=== PATIENT | female | born 1940 | race Caucasian/White ===

== ENCOUNTER 2022-06-05 17:33 | Observation (INO) | payer OTHER ==
[~2022-06-05] VITALS: Ht 149.9 cm; Wt 68.5 kg
[2022-06-05 17:35] VITALS: BP 106/70
[2022-06-05 18:37] LABS: ALBUMIN 2.4 g/dL (3.4-5.0); ANION GAP 14.2 (8-16); ASPARTATE AMINOTRANSFERASE 25 U/L (15-37); CARBON DIOXIDE 20.4 mmol/L (21-32); CHLORIDE 113 mmol/L (98-107); CREATININE 2.1 mg/dL (0.6-1.3); GLUCOSE 133 mg/dL (74-106); MAGNESIUM 1.4 mg/dL (1.8-2.4); POTASSIUM 4.6 mmol/L (3.5-5.1); SODIUM SERUM 143 mmol/L (136-145); TOTAL BILIRUBIN 0.3 mg/dL (0.0-1.0); UREA NITROGEN, BLOOD 30 mg/dL (7-18)
--- NOTE | 2022-06-05 19:03 | NUR ---
82YR OLD FEMALE BIB EMS C/O SYCNOPE. PT WAS FOUND IN BATHROOM DOES NOT REMEMBER AFTER SHE STOOD UP FROM THE SOFA. GLUC 142. A&OX4. PT ON BEDSIDE MONITOR. 20G IV CATH PLACED L HAND.
--- NOTE | 2022-06-05 19:38 | NUR ---
SWAB COLLECTED AND WALKD TO LAB
[2022-06-05] MEDS ORDERED: DEXTROSE 50% 50 ML SYR IVP ONE (20:15)
[2022-06-05] MEDS ORDERED: cefTRIAXone 1,000 MG in DEXT 5% MINI-BAG PLUS 50 ML IV ONE (20:15)
[2022-06-05] MEDS ORDERED: NACL 0.9% 1,000 ML IV SCH (20:15)
[2022-06-05 20:18] LABS: BASOPHILS % (AUTO) 0.5 % (0.0-2.0); EOSINOPHILS % (AUTO) 10.9 % (0.0-4.0); HEMATOCRIT 27.4 % (36-48); HEMOGLOBIN 8.9 g/dL (12.0-16.0); LYMPHOCYTES # (AUTO) 1.3 K/uL (2.5-16.5); LYMPHOCYTES % (AUTO) 13.6 % (20.5-51.1); MEAN CORPUSCULAR HEMOGLOBIN 31 pg (27-31); MEAN CORPUSCULAR HGB CONC 33 g/dL (33-37); MEAN CORPUSCULAR VOLUME 93.9 fL (80-94); MONOCYTES # (AUTO) 0.7 K/uL (0.8-1.0); MONOCYTES % (AUTO) 7.1 % (1.7-9.3); NEUTROPHILS # (AUTO) 6.3 K/uL (1.8-7.7); NEUTROPHILS % (AUTO) 67.9 % (42.2-75.2); PLATELET COUNT (AUTO) 309 K/uL (140-450); RED BLOOD CELL COUNT(AUTO) 2.92 MIL/uL (4.20-5.40); RED CELL DISTRIBUTION WIDTH 17.5 % (11.6-13.7); WHITE BLOOD COUNT (AUTO) 9.3 K/uL (4.8-10.8)
[2022-06-05] MEDS ORDERED: cefTRIAXone 1,000 MG VIAL ONE (20:51)
--- NOTE | 2022-06-05 21:00 | NUR ---
ASSISTED PATIENT TO EAT SNACKS AND DRINKS. SITTING UP IN BED, TOLERATED WELL.
--- NOTE | 2022-06-05 21:25 | NUR ---
Note vivien in ED - 06/05/22 at 2351 by DARYN Patient will be admitted to care of [facility]. Admited to MD BERKLEY. Will go to room 111B. Belongings list completed. Report to CORTES MOYA .
--- NOTE | 2022-06-05 21:50 | NUR ---
SPOKE TO PATIENTS NAKUL ENGLE, AND UPDATED ON PATIENT STATUS AND TRANSFER.
--- NOTE | 2022-06-05 21:57 | NUR ---
SPOKE TO MEEK FROM [facility], GAVE CLINICALS ON PATIENT. PER MEEK PATIENT IS AUTHORIZED FOR OBSERBATION.
--- NOTE | 2022-06-05 22:30 | NUR ---
SPOKE TO MEEK AND SHE STATED SHE DID NOT RECEIVE CLINICALS. BUT OKAY TO ADMIT FOR OBSERVATION AFTER CLINICALS ARE RECEIVED.
[2022-06-05] MEDS ORDERED: SODIUM PHOS / POTASSIUM PHOS 1 PKT PDR PO PRN (22:50)
[2022-06-05] MEDS ORDERED: ONDANSETRON 4 MG/2 ML VIAL IM/IVP PRN (22:50)
[2022-06-05] MEDS ORDERED: ACETAMINOPHEN 325 MG TAB PO PRN (22:50)
[2022-06-05] MEDS ORDERED: DOCUSATE SODIUM 100 MG GELCAP PO PRN (22:50)
[2022-06-05] MEDS ORDERED: POTASSIUM CHLORIDE 10 MEQ TABER PO PRN (22:50)
--- NOTE | 2022-06-05 22:58 | NUR ---
SPOKE TO NAKUL ENGLE, UPDATED ON PATIENTS STATUS.
--- NOTE | 2022-06-05 23:00 | NUR ---
MD AWARE THAT URINE IS NOT COLLECTED.
--- NOTE | 2022-06-05 23:00 | NUR ---
ASSISTED BED WITH RENE CARE. CLEANED AND REPOSITIONED PATIETN. RQ MORE BLANKETS.
[2022-06-05 23:26] LABS: MAGNESIUM 1.4 mg/dL (1.8-2.4); PHOSPHORUS 3.8 mg/dL (2.5-4.9); THYROID STIMULATING HORMONE 0.04 uIU/mL (0.34-3.74)
[2022-06-05] MEDS: DEXT 5% /NACL 0.9% 1,000 ML IV SCH (23:45)
[2022-06-06] MEDS ORDERED: ATEN25TA7 PO (01:45)
[2022-06-06] MEDS ORDERED: HUM SUBQ (01:45)
[2022-06-06] MEDS ORDERED: ATOR20TA PO (01:48)
[2022-06-06] MEDS ORDERED: DEXTROSE 50% 50 ML SYR IVP PRN ×2 (02:05→15:05)
--- NOTE | 2022-06-06 02:21 | NUR ---
REPOSITIONED PATIENT. BED LOW AND LOCKED. ALL NEEDS MET
--- NOTE | 2022-06-06 05:59 | NUR ---
PROVIDED RENE CARE AND CLEANED PATIENT. PATIENT REPOSITIONED AND COVERED IN BLANKETS. BED LOW AND LOCKED. MICHAEL SIDE RAILS UP FOR SAFETY. ALL NEEDS MET.
--- NOTE | 2022-06-06 06:47 | NUR ---
LAB AT BEDSIDE
[2022-06-06 06:55] LABS: BASOPHILS # (AUTO) 0.1 K/uL (0.00-0.22); BASOPHILS % (AUTO) 0.7 % (0.0-2.0); EOSINOPHILS # (AUTO) 0.5 K/uL (0-0.4); EOSINOPHILS % (AUTO) 6.7 % (0.0-4.0); HEMATOCRIT 26.4 % (36-48); HEMOGLOBIN 8.5 g/dL (12.0-16.0); LYMPHOCYTES # (AUTO) 1.2 K/uL (2.5-16.5); LYMPHOCYTES % (AUTO) 15.7 % (20.5-51.1); MEAN CORPUSCULAR HEMOGLOBIN 30 pg (27-31); MEAN CORPUSCULAR HGB CONC 32 g/dL (33-37); MEAN CORPUSCULAR VOLUME 93.7 fL (80-94); MONOCYTES # (AUTO) 0.5 K/uL (0.8-1.0); NEUTROPHILS # (AUTO) 5.5 K/uL (1.8-7.7); NEUTROPHILS % (AUTO) 69.9 % (42.2-75.2); PLATELET COUNT (AUTO) 291 K/uL (140-450); RED BLOOD CELL COUNT(AUTO) 2.81 MIL/uL (4.20-5.40); RED CELL DISTRIBUTION WIDTH 17.2 % (11.6-13.7); WHITE BLOOD COUNT (AUTO) 7.8 K/uL (4.8-10.8)
--- NOTE | 2022-06-06 07:04 | NUR ---
PATIENT HAS BEEN SCREENED AND CATEGORIZED MODERATE NUTRITION RISK. PATIENT WILL BE SEEN WITHIN 3-5 DAYS OF ADMISSION. 06/08/22-06/10/22 MAR ROBERTS MS, RDN Addendum: 06/08/22 at [address] [facility] CONSULT HAS BEEN RECEIVED FOR MALNUTRITION. PATIENT HAS BEEN RE-SCREENED HIGH RISK AND WILL BE SEEN TODAY. 06/08/[address]
[2022-06-06 07:13] LABS: CARBON DIOXIDE 18.9 mmol/L (21-32); CHLORIDE 114 mmol/L (98-107); CREATININE 1.9 mg/dL (0.6-1.3); GLUCOSE 189 mg/dL (74-106); POTASSIUM 4.9 mmol/L (3.5-5.1); SODIUM SERUM 145 mmol/L (136-145); UREA NITROGEN, BLOOD 30 mg/dL (7-18)
[2022-06-06] MEDS ORDERED: ASPI81CT95 PO (07:20)
[2022-06-06] MEDS ORDERED: LISI20TA29 PO (07:20)
[2022-06-06] MEDS ORDERED: [UNRECOGNIZED DRUG - CODE] SL (07:20)
--- NOTE | 2022-06-06 07:21 | NUR ---
REPORT GIVEN TO MERLE العراقي. TRANSFER OF CARE
--- NOTE | 2022-06-06 07:21 | NUR ---
REPORT RECEIVED FROM RUBÉN BLOOM. ASSUMED CARE AT THIS TIME
--- NOTE | 2022-06-06 07:30 | NUR ---
pt awake and at rest , laying supine position. respirations even and unlabored. no visible distress. pt on monitor
[2022-06-06] MEDS: BLOOD GLUCOSE MONITORING 1 DEV DEV FS SCH ×4 (07:38→21:40)
[2022-06-06] MEDS: INSULIN LISPRO SLIDING SCALE 100 UNITS/ML VIAL SUBQ PRN ×2 (07:47→12:12)
--- NOTE | 2022-06-06 08:25 | NUR ---
pt provided w/ breakfast. pt repositioned , sitting up and eating in bed
--- NOTE | 2022-06-06 09:41 | NUR ---
MD VILLANUEVA AT BEDSIDE
[2022-06-06] MEDS: MAGNESIUM OXIDE 400 MG TAB PO PRN (10:07)
[2022-06-06] MEDS: PANTOPRAZOLE 40 MG INJ VIAL IVP SCH (10:07)
--- NOTE | 2022-06-06 12:00 | NUR ---
PT PROVIDED WITH LUNCH "NOT RIGHT NOW". LEFT AT BEDSIDE
--- NOTE | 2022-06-06 12:13 | NUR ---
ULTRASOUND AT BEDSIDE
--- NOTE | 2022-06-06 14:45 | NUR ---
PT REPORTS NEW ONSET OF DRY EYES AND UNABLE TO KEEP EYES OPEN. MD VILLANUEVA MADE AWARE VIA TEXT/ HOSPITAL PHONE
[2022-06-06] MEDS ORDERED: POLYVINYL ALCOHOL 1.4% OP 15 ML SOL OP PRN (15:05)
[2022-06-06] MEDS ORDERED: CARBOXYMETHYLCELLULOSE SODIUM OP PRN (15:15)
--- NOTE | 2022-06-06 15:41 | NUR ---
PT REPORTS EYE RELIEF. PT REPOSITIONED, GOWN CHANGED AND PROVIDED WITH NEW BLANKETS
--- NOTE | 2022-06-06 16:38 | NUR ---
PT TAKEN TO CT VIA JAYDEN
--- NOTE | 2022-06-06 16:51 | NUR ---
PT BROUGHT BACK FROM CT VIA JAYDEN
[2022-06-06] MEDS ORDERED: MAGNESIUM OXIDE 400 MG TAB PO ONE (16:55)
[2022-06-06] MEDS ORDERED: ECOTRIN 81 MG TABEC PO ONE (17:05)
[2022-06-06] MEDS: DEXT 5% /NACL 0.9% 1,000 ML IV SCH (18:50)
[2022-06-06] MEDS: ATORVASTATIN 20 MG TAB PO SCH (19:00)
--- NOTE | 2022-06-06 19:30 | NUR ---
REPORT GIVEN TO RUBÉN BLOOM. ALL QUESTIONS ANSWERED. TRANSFER OF CARE AT THIS TIME
--- NOTE | 2022-06-06 20:00 | NUR ---
IV ON RIGHT HAND DISCONTINUED. LEFT HAND 22G IV ESTABLISHED. IVF STARTED ORDERED.
--- NOTE | 2022-06-06 20:44 | NUR ---
Chart checked and completed.
--- NOTE | 2022-06-06 20:44 | NUR ---
Patient will be admitted to care of DO DIVINE. Admited to TELEMTRY. Will go to room 120B. Belongings list completed. Report to CORTES LEOS.
[2022-06-06 21:00] VITALS: BP 146/56
--- NOTE | 2022-06-06 21:00 | NUR ---
PT RECEIVED FROM DRUM FILLERCORTES ZIEGLER. PT IS A/O X 4. FULL CODE. HAS ALLERGIES TO : AMIODARONE, ASCORBIC ACID, CODEINE AND HYDRALAZINE. PT HAS A LH PIV 22G RUNNING D5 NS @ 50ML/HR. PT IS ON BEDREST SHE HAS A DIAPER ON AND USES BED COMMODE SOMETIMES. PT IS ABLE TO MOVE SIDE TO SIDE. PT IS ON ROOM AIR BREATHING E/U. PT DOES HAVE A DRY COUGH, NON-PRODUCTIVE. BED IN LOWEST POSITION, HOB ELEVATED, CALL LIGHT IN REACH, PT ORIENTED TO ROOM, AND SIDE RAILS X2. WILL CONTINUE TO MONITOR.
[2022-06-06] MEDS ORDERED: cefTRIAXone 1,000 MG VIAL ONE (21:26)
[2022-06-06] MEDS: carvediloL 6.25 MG TAB PO SCH (22:07)
[2022-06-07] VITALS: BP 144/45
[2022-06-07 04:00] VITALS: BP 140/51
--- NOTE | 2022-06-07 04:45 | NUR ---
PT PULLED OUT HER IV, I INSISTED AND EDUCATED PATIENT TO LET ME INSERT A NEW IV AND SHE REFUSED. CHARGE NURSE MADE AWARE.
[2022-06-07] MEDS: BLOOD GLUCOSE MONITORING 1 DEV DEV FS SCH ×4 (06:30→20:24)
--- NOTE | 2022-06-07 07:30 | NUR ---
RECEIVED REPORT FROM NIGHT NURSE. AOX3, ABLE BEAR WEIGHT AND WALK A FEW FEET. PATIENT DENIES ANY PAIN, NAUSEA AND VOMITING. NO SOB ON ROOM AIR, WITH DRY COUGH. PT REFUSING IV PLACEMENT AT THIS TIME. ISOLATION FOR SUSPECTED COVID, PCR PENDING. VERBALIZED UNDERSTANDING WITH THE POC. CALL LIGHT WITHIN REACH. WILL CONTINUE MONITORING AND POC.
[2022-06-07 08:00] VITALS: BP 158/69
[2022-06-07] MEDS ORDERED: ATORVASTATIN 20 MG TAB PO SCH (09:00)
[2022-06-07] MEDS ORDERED: PRAZOSIN 1 MG CAP PO SCH (09:00)
--- NOTE | 2022-06-07 09:20 | NUR ---
DUE MEDS GIVEN TOLERATED WELL
[2022-06-07] MEDS: ASPIRIN 81 MG TAB.CHEW PO SCH (09:46)
[2022-06-07] MEDS: carvediloL 6.25 MG TAB PO SCH (09:46)
[2022-06-07] MEDS: lisinopriL 20 MG TAB PO SCH (09:46)
[2022-06-07] MEDS: PANTOPRAZOLE 40 MG INJ VIAL IVP SCH (09:46)
[2022-06-07] MEDS: ATORVASTATIN 20 MG TAB PO SCH (09:46)
--- NOTE | 2022-06-07 10:30 | NUR ---
IV INSERTED TO RAC 22G, INTACT AND PATENT
[2022-06-07 12:00] VITALS: BP 154/67
[2022-06-07] MEDS: INSULIN LISPRO SLIDING SCALE 100 UNITS/ML VIAL SUBQ PRN ×2 (12:13→20:26)
[2022-06-07] MEDS: MIDODRINE 5 MG TAB PO SCH ×2 (13:00→18:17)
--- NOTE | 2022-06-07 13:00 | NUR ---
PT RESTING IN BED NO SOB, NO C/O PAIN
[2022-06-07] MEDS: DEXT 5% /NACL 0.9% 1,000 ML IV SCH (14:55)
[2022-06-07 16:00] VITALS: BP 188/73
--- NOTE | 2022-06-07 16:00 | NUR ---
BP 188/73, PAGED DR VILLANUEVA
--- NOTE | 2022-06-07 16:51 | NUR ---
BLOOD SUGAR 95, NO COVERAGE
--- NOTE | 2022-06-07 17:00 | NUR ---
DR VILLANUEVA ORDERED HYDRALAZINE 10MG IVP Q6H PRN
[2022-06-07] MEDS: hydrALAZINE 20 MG/ML VIAL IVP PRN (18:01)
[2022-06-07] MEDS: MAGNESIUM OXIDE 400 MG TAB PO PRN (19:18)
[2022-06-07 20:00] VITALS: BP 161/62
[2022-06-08] VITALS: BP 154/67
[2022-06-08 04:00] VITALS: BP 186/70
[2022-06-08] MEDS: hydrALAZINE 20 MG/ML VIAL IVP PRN (05:11)
[2022-06-08] MEDS: MIDODRINE 5 MG TAB PO SCH ×2 (06:28→13:00)
[2022-06-08] MEDS: BLOOD GLUCOSE MONITORING 1 DEV DEV FS SCH ×3 (06:29→16:39)
[2022-06-08 08:45] VITALS: BP 170/85
[2022-06-08] MEDS ORDERED: carvediloL 12.5 MG TAB PO SCH (09:00)
[2022-06-08] MEDS: PANTOPRAZOLE 40 MG INJ VIAL IVP SCH (09:09)
[2022-06-08] MEDS: lisinopriL 20 MG TAB PO SCH (09:10)
[2022-06-08] MEDS: ATORVASTATIN 20 MG TAB PO SCH (09:10)
[2022-06-08] MEDS: ASPIRIN 81 MG TAB.CHEW PO SCH (09:10)
[2022-06-08] MEDS ORDERED: CEPH-588 PO (10:05)
[2022-06-08] MEDS ORDERED: CARV12.5 PO (10:05)
[2022-06-08] MEDS ORDERED: ATOR20TA PO (10:05)
[2022-06-08] MEDS ORDERED: LISI20TA29 PO (10:07)
[2022-06-08] MEDS: INSULIN LISPRO SLIDING SCALE 100 UNITS/ML VIAL SUBQ PRN ×2 (11:01→16:40)
[2022-06-08 12:00] VITALS: BP 128/80
--- NOTE | 2022-06-08 14:55 | NUR ---
DC PLANNING: PATIENT HAS A DC ORDER TO GO TO SNF, PATIENT STATED SHE WAS AT [facility] AND WOULD LIKE TO GO THERE CALLED [facility] SPOKE WITH [facility] PROVIDE THE AUTH FOR TRANSPORT [id number]. PER ABDIFATAH AT [facility] CAN GO TO ROOM 102A NUMBER TO GIVE REPORT [phone] ARRANGED TRANSPORT WITH CHANA STEWARD [facility] TIME BETWEEN 6-7PM. NOTIFIED RANDOLPH HORAN CM TO FOLLOW
[2022-06-08 16:46] VITALS: BP 144/63
--- NOTE | 2022-06-08 17:26 | NUR ---
0730 Pt. in isolation for PUI covid. No acute distress, vss, aaox3, forgeful at times. call light in reach. 1200 No acute distress, bld sugar of 154 given insulin as rx'd, refusing to eat lunch 1400 PCR covid test negative. Order for pt. to go to snf later today 1500 Report called to MERLE Olguin at [facility]. Call to pt. son, Dinesh, message left regarding dc to snf. Addendum: 06/08/22 at 1818 by Agency 08 CORTES RN 1814 Pt. left for SNF, no belongings noted. All forms signed, dc instructions given to transfer crew. Pt. left with no distress, vss, no pain, aaox3. H.L. dc'd with canula intact.
[2022-06-08 18:03] VITALS: BP 140/60
--- NOTE | 2022-06-12 12:12 | NUR ---
LATE ENTRY- DEXTROSE/SODIUM CHLORIDE DISCONTINUED AT 2043.
== END 2022-06-08 18:17 ==
LOC: MED 17:33 → MMU 23:46 → MTU 06-06 18:26
PROVIDERS: ADMIT Hospitalist; ATTEND Hospitalist
DX: E11.649 Type 2 diabetes mellitus with hypoglycemia without coma (principal); Z20.822 Contact with and (suspected) exposure to COVID-19; G90.9 Disorder of the autonomic nervous system, unspecified; N39.0 Urinary tract infection, site not specified; I12.9 Hypertensive chronic kidney disease with stage 1 through stage 4 chronic kidney disease, or unspecified chronic kidney disease; E11.22 Type 2 diabetes mellitus with diabetic chronic kidney disease; N18.9 Chronic kidney disease, unspecified; N17.9 Acute kidney failure, unspecified; D63.1 Anemia in chronic kidney disease; E83.42 Hypomagnesemia; E05.90 Thyrotoxicosis, unspecified without thyrotoxic crisis or storm; R53.1 Weakness; E43 Unspecified severe protein-calorie malnutrition; E87.2 Acidosis; Z79.899 Other long term (current) drug therapy
CPT/HCPCS: 36415; 70450; 71045; 80048; 80053; 82948; 83036; 83605; 83735; 83880; 84100; 84443; 84484; 85025; 87040; 87081; 87426; 87635; 93005; 93880; 96361; 96365; 96366; 96372; 96375; 96376; 97163; 97530; 99285; C8929; C9113; G0378; J0360; J0696; J1815; J7060; Q0092; U0003